=== PATIENT | male | born 1985 | race Caucasian/White ===

== ENCOUNTER 2018-09-11 19:38 | Emergency (ER) | payer BC, SELFPAY ==
[2018-09-11 19:38] VITALS: BP 129/81; PULSE 86; RESP 18; TEMP 36.8; O2SAT 100; BMI 25.3
--- NOTE | 2018-09-11 19:50 | EKG12_ITS ---
Test Reason : HEADACHE Blood Pressure : / mmHG Vent. Rate : 060 BPM Atrial Rate : 060 BPM P-R Int : 156 ms QRS Dur : 098 ms QT Int : 374 ms P-R-T Axes : 053 045 031 degrees QTc Int : 374 ms Normal sinus rhythm with sinus arrhythmia Normal ECG Confirmed by VALARIE TRIVEDI, GAGE ([id number]), subeditor JAMIL NAJERA ([id number] on 09/13/2018 1:32:21 PM Referred By: EMILIANO Confirmed By:GAGE SHEPPARD MD
--- NOTE | 2018-09-11 19:54 | ED.RN ---
NO OLD EKGS IN MUSE
--- NOTE | 2018-09-11 20:00 | RAD_ITS ---
STUDY: X-RAY CHEST REASON FOR EXAM: Male, 33 years old. Headache TECHNIQUE: PA and lateral views of the chest. COMPARISON: None. FINDINGS: The lungs are clear and expanded. There is no demonstrated pleural abnormality. Normal size heart. Normal mediastinum and edith. Normal visualized pulmonary arteries. Normal visualized aortic arch and descending thoracic aorta. Normal visualized thoracic spine. Normal visualized ribs, clavicles, and shoulders. There is no demonstrated abnormality of the visualized soft tissue structures of the upper abdomen. RAD/Chest PA and Lateral IMPRESSION: Normal x-ray examination of the chest. Electronically Signed: Kiya Manuel MD at 20:17 EDT Tel , Service support ,
[2018-09-11 20:26] LABS: Absolute Lymphocyte Count 2.11 X10^3/uL (0.83-4.51); Absolute Neutrophil Count 1.7 X10^3/uL (2.0-7.7); Basophil# 0.04 X10^3/uL; Basophil% 0.9 % (0-1); Eosinophil# 0.24 X10^3/uL; Eosinophils% 5.1 % (0-5); Hematocrit 44.7 % (40-54); Hemoglobin 15.6 g/dL (13.0-16.5); Lymphocyte # 2.11 X10^3/ul (4.0); Lymphocyte % 44.9 % (19-41); Mean Corp Hgb Conc 34.9 g/dL (32-36); Mean Corpuscular Hgb 31.3 pg (27.0-32.0); Mean Corpuscular Volume 89.8 fL (80-94); Monocyte# 0.58 X10^3/uL; Monocyte% 12.3 % (0-10); NRBC Flagged by Analyzer 0 % (0-5); Neutrophil # 1.72 X10^3/uL (2.7-7.7); Neutrophil % 36.6 % (47-70); Platelet Count 255 K/mm3 (150-450); RBC Distribution Width CV 12.1 % (11.6-14.6); RBC Distribution Width SD 40.1 fl (35.1-43.9); Red Blood Count 4.98 M/mm3 (4.6-6.2); White Blood Count 4.7 K/mm3 (4.4-11.0)
[2018-09-11 20:31] VITALS: O2SAT 98
[2018-09-11 20:35] VITALS: BP 121/83; PULSE 76; RESP 16; O2SAT 97
[2018-09-11 20:39] LABS: Anion Gap 3 (5-15); BUN 18 mg/dL (7-18); BUN/Creat Ratio 12.9 RATIO (10-20); Calcium,Total 8.4 mg/dL (8.5-10.1); Chloride 108 mmol/L (98-107); EST Glomerular Filtration Rate 63 mL/min (>60); Est Glom Filt Rate - Afr Amer 76 mL/min (>60); Estimated Creatinine Clearance 78.94 ml/min; Glucose 98 mg/dL (74-106); Potassium 3.7 mmol/L (3.5-5.1); Sodium Level 139 mmol/L (136-145)
[2018-09-11 20:42] LABS: Partial Thromboplast Time 31.5 Seconds (24.1-36.2)
[2018-09-11 20:46] LABS: Bedside Glucose 84 mg/dL (70-110)
[2018-09-11 22:07] VITALS: BP 126/79; PULSE 68; RESP 17; O2SAT 100
--- NOTE | 2018-09-11 22:11 | CT_ITS ---
STUDY: CTA HEAD AND NECK WITH and without CONTRAST REASON FOR EXAM: Male, 33 years old. Headache with aura RADIATION DOSAGE (If Supplied By Facility): CTDIvol = ( 28.46 ) mGy, DLP = ( 1411.98 ) mGycm TECHNIQUE: CT angiography was performed with a multi-detector CT scanner. Data acquisition was obtained from the skull base through the vertex following intravenous administration of 100ML IV Isovue 300. MIP images were reconstructed from the axial data set. Post-processing of the angiographic images was performed, with multiplanar reformation and 3D reconstruction. Individualized dose optimization techniques were used for this CT. COMPARISON: No relevant priors. FINDINGS: Normal bilateral petrous carotid arteries. Normal right cavernous carotid artery with a normal supraclinoid bifurcation. Normal left cavernous carotid artery with a normal supraclinoid bifurcation. Normal right A1 segments of the anterior cerebral artery. Normal left A1 segments of the anterior cerebral artery. Normal intact anterior communicating artery (ACOM). Normal bilateral A2 segments of the anterior cerebral arteries. Normal right M1 and M2 segments of the middle cerebral arteries, with a normal M1 bifurcation. Normal left M1 and M2 segments of the middle cerebral arteries, with a normal M1 bifurcation. There is non-visualization of the right posterior communicating artery (PCOM). Normal left posterior communicating artery (PCOM). Normal bilateral vertebral arteries. Normal basilar artery with a normal basilar bifurcation. The visualized bilateral superior cerebellar (SCA) arteries are normal. Normal bilateral P1, P2 and visualized P3 segments of the posterior cerebral arteries. There is no demonstrated aneurysm of the [place]. There is no demonstrated abnormality of the visualized brain. AORTIC ARCH: Normal visualized aortic arch. Normal origins of the brachiocephalic, left common carotid, and left subclavian arteries. RIGHT CAROTID ARTERIES: Normal right common carotid artery (CCA). Normal right common carotid bulb. Normal origin of the right internal carotid (ICA) artery without a hemodynamically significant stenosis. Normal visualized cervical portion of the right internal carotid artery. Normal origin of the right external carotid artery (ECA). LEFT CAROTID ARTERIES: Normal left common carotid artery (CCA). Normal left common carotid bulb. Normal origin of the left internal carotid (ICA) artery without a hemodynamically significant stenosis. Normal visualized cervical portion of the left internal carotid artery. Normal origin of the left external carotid artery (ECA). VERTEBRAL ARTERIES: Normal bilateral vertebral arteries. CT head without contrast: the ventricles are symmetric there is no evidence of midline shift, edema, hemorrhage infarct or extra-axial fluid collection. The calvarium appears normal. The paranasal sinuses are clear. There is adjacent degenerative change in the cervical spine. CT/CTA Head AND Neck W/ Contrast IMPRESSION: Normal CTA Head and neck with and without contrast. Electronically Signed: Kiya Manuel MD at 22:52 EDT Tel , Service support ,
--- NOTE | 2018-09-11 23:56 | ED.DCSUM_ITS ---
- ER Visit Summary Date of Service: 09/11/18 Chief Complaint: Headache History of Present Illness: The patient is a 33 M presenting with headache. Patient states this started around 6 PM this evening. He states it started gradually and continued to worsen. He states he initially had blurry vision in both eyes. He also then noticed left hand numbness and left facial numbness. He states the headache has started to improve and is now 1 out of 10 without treatment. He states the vision symptoms have resolved. He continues to have mild numbness in his left hand. He states this is not the worst headache of his life. Denies weakness. Denies chest pain or shortness of breath. Denies speech changes. Denies lightheadedness or syncope. Denies recent trauma. Denies fever. Denies other complaints. Physical Examination: Vitals are stable. Patient is afebrile. Alert no acute distress. HEENT exam is unremarkable. Neck is supple. No meningismus Lungs are clear and equal bilaterally. Heart is regular rate and rhythm. Abdomen is soft nontender nondistended. Extremities are unremarkable. Skin is warm and dry. No focal neurologic deficit. NIH 0 Remainder of exam is unremarkable. Emergency Department Course and Treatment: CBC, chemistries unremarkable other than creatinine 1.40. INR 1.0. Chest x-ray shows no acute process. CTA head and neck show Normal CTA Head and neck with and without contrast. On reevaluation, patient states symptoms have resolved. He states the headache has resolved as well as the vision changes and left upper extremity numbness. I feel his symptoms likely are due to an atypical migraine. I have paged neurology and they have not called back at this time. Patient is requesting discharge home. He is advised signs and symptoms for which to return to the ED. Advised to return the ED for any worsening complaints. Disposition: Discharge home Impression: Headache, resolved This note was generated with [employer] dictation software. It may contain incorrect words, spelling, and punctuation that were not noted in review of the chart prior to signing ED Disposition - Plan for ED Patient: Instructions: HEADACHE, Unspecified Referrals: Dian Batres MD [STAFF PHYSICIAN] -
[2018-09-12 00:05] VITALS: BP 116/82; PULSE 63; RESP 16; O2SAT 97
--- NOTE | 2018-09-12 00:40 | ED.RN ---
[facility] PAGED TO SPEAK WITH DR FULLER
--- NOTE | 2018-09-12 00:55 | ED.DEP ---
ED Disposition - Plan for ED Patient: Instructions: HEADACHE, Unspecified Referrals: Dian Batres MD [STAFF PHYSICIAN] -
[2018-09-12 01:16] VITALS: BP 119/77; PULSE 61; RESP 16; O2SAT 96
--- NOTE | 2018-09-12 01:16 | ED.RN ---
PT REQUESTED A DISK OF HIS RADIOLOGY RESULTS. FORM COMPLETED AND RADIOLOGY WAS CALLED.
== END 2018-09-12 01:26 | disposition home or self-care (01) ==
PROVIDERS: Emergency Provider Emergency Medicine
DX: R51 Headache (principal); H53.8 Other visual disturbances; R20.0 Anesthesia of skin
CPT/HCPCS: 70496; 70498; 71046; 80048; 82962; 85025; 85610; 85730; 93005; 99284; J7030; Q9967; A4216